=== PATIENT | male | born 1960 | race Caucasian/White ===

== ENCOUNTER → 2018-06-27 | Outpatient (CLI) | payer OTHER ==
--- NOTE | 2018-06-27 14:15 | XR ---
EXAMINATION TYPE: XR knee limited bilateral DATE OF EXAM: 06/27/2018 CLINICAL HISTORY: Bilateral knee pain TECHNIQUE: Frontal and lateral views of the both knees were obtained. COMPARISON: None. FINDINGS: There is no acute fracture/dislocation evident in either knee. On the right there is media l compartment and patellofemoral compartment joint space narrowing with small tricompartmental margin al osteophytes. Minimal atherosclerosis is seen. No suspicious osseous lesion. On the left there are similar findings of tricompartmental joint space narrowing and small marginal osteophytes. No suspici ous osseous lesion. IMPRESSION: There is no acute fracture or dislocation either knee. Tricompartmental arthrosis noted bilaterally, left slightly greater than right.
== END | disposition home or self-care (01) ==
LOC: RADXRMAIN 13:52
PROVIDERS: ATTEND Family Medicine
DX: M17.0 Bilateral primary osteoarthritis of knee (principal)